=== PATIENT | male | born 1950 | race Hispanic/Latino ===

== ENCOUNTER 2017-12-31 11:55 | Emergency (ER) | payer MEDICARE, OTHER ==
[~2017-12-31] VITALS: Ht 167.6 cm; Wt 108.9 kg
[~2017-12-31 11:55] MED LIST: ALLOPURINOL300 MG PO; AMBIEN10 MG PO; CARAFATE1 GM PO; FLOMAX0.4 MG PO; GABAPENTIN100 MG PO; KEFLEX500 MG PO; LOVENOX30 MG/0.3 SC; METFORMIN HCL500 MG PO; NORCO 7.5-3251 EACH PO; ONGLYZA2.5 MG PO; PANTOPRAZOLE SO40 MG PO; PRED FORTE1 ML OU; PROPRANOLOL HCL10 MG PO; REGLAN10 MG PO; RESTORIL15 MG PO; TOBRADEX EYE O3.5 GM OP; ULTRAM 50MG50 MG PO; VALIUM5 MG PO; ZOLOFT50 MG PO
[2017-12-31] MEDS ORDERED: SODIUM CHLORIDE 0.9% 1000ML 1,000 ML IV SCH (12:15)
[2017-12-31 12:33] LABS: BASOPHILS # (AUTO) 0.1 (0.0-0.1); BASOPHILS % 1.3 % (0.0-1.0); EOSINOPHILS # (AUTO) 0.2 (0.0-0.4); EOSINOPHILS % 3.2 % (0.0-6.0); HEMOGLOBIN 15.8 g/dL (14.0-18.0); LYMPHOCYTES % 31.1 % (18.0-39.1); MEAN CORPUSCULAR HEMOGLOBIN 30.7 pg (28-32); MEAN CORPUSCULAR HGB CONC 35.9 g/dL (31-35); MEAN CORPUSCULAR VOLUME 85.6 fL (81-99); MONOCYTES # (AUTO) 0.5 (0.2-0.8); MONOCYTES % 8.4 % (4.4-11.3); NEUTROPHILS # (AUTO) 3.5 (2.1-6.9); NEUTROPHILS % 55.5 % (38.7-80.0); PLATELET COUNT 193 x10e3/uL (140-360); RED BLOOD COUNT 5.14 x10e6/uL (4.3-5.7); RED CELL DISTRIBUTION WIDTH 12.9 % (11.7-14.4)
[2017-12-31 12:44] LABS: ALBUMIN 3.8 g/dL (3.5-5.0); ALBUMIN/GLOBULIN RATIO 1.2 (0.8-2.0); ANION GAP 13.5 mmol/L (8-16); CALCIUM 9.4 mg/dL (8.4-10.2); CREATININE, SERUM 1.26 mg/dL (0.72-1.25); POTASSIUM 4.5 mmol/L (3.5-5.1)
[2017-12-31 13:14] LABS: BILIRUBIN,URINE NEGATIVE (NEGATIVE); CLARITY,URINE CLEAR (CLEAR); COLOR,URINE YELLOW (YELLOW); KETONES,URINE NEGATIVE (NEGATIVE); LEUKOCYTE ESTERASE ,URINE NEGATIVE (NEGATIVE); NITRITE,URINE NEGATIVE (NEGATIVE); PROTEIN,URINE DIPSTICK NEGATIVE (NEGATIVE); URINE UROBILINOGEN 0.2 mg/dL (0.2 - 1)
[2017-12-31 13:25] LABS: BACTERIA,URINE RARE /HPF; EPITHELIAL CELLS,URINE RARE /LPF; WBC,URINE (MAN) 0-5 /HPF (0-5)
[2017-12-31] MEDS ORDERED: INSULIN REGULAR, HUMAN 100 UNIT/1 ML 3ML VIAL IV ONE (13:30)
== END 2017-12-31 14:40 | disposition home or self-care (01) ==
LOC: ER 11:55
DX: E11.65 Type 2 diabetes mellitus with hyperglycemia (principal); E78.5 Hyperlipidemia, unspecified; E66.9 Obesity, unspecified; Z96.651 Presence of right artificial knee joint
CPT/HCPCS: 36415; 80053; 81001; 82948; 85025; 93005; 99284; J7030

== ENCOUNTER → 2018-07-05 | Outpatient (CLI) | payer MEDICARE ==
[~2018-07-05] MED LIST changes: +GADOBENATE DIMEGLUMINE 1 ML IV ONE
[2018-07-05 08:44] LABS: BLOOD UREA NITROGEN 22 mg/dL (7-26); BUN/CREATININE RATIO 22 (6-25); CREATININE, SERUM 0.99 mg/dL (0.72-1.25); EST GLOMERULAR FILTRATION RATE > 60 ML/MIN (60-)
--- NOTE | 2018-07-05 13:02 | Diagnostic Imaging Report ---
MRI BRAIN WOW HISTORY: Right facial pain, right third nerve palsy, anesthesia COMPARISON: None. TECHNIQUE: Multiplanar, multisequence MRI of the brain (including diffusion-weighted imaging) was performed before and after the administration of intravenous, gadolinium based contrast. Axial 3-D FIESTA and postcontrast 3-D T1 weighted images were obtained from the level of the midbrain to medulla. Motion and noise artifacts obscure some details. DISCUSSION: Scalp/bone marrow: Unremarkable. Brain sulci: Appropriate for patient's age. Ventricles: Normal in size and configuration. No hydrocephalus. Extra-axial spaces: No masses or fluid collections. The cavernous sinuses are grossly normal in size and enhance symmetrically. Meckel's caves are grossly clear. The cisternal trigeminal nerves are unremarkable. The partially visualized cisternal third cranial nerves (on FIESTA images) are also unremarkable. Parenchyma: Mild T2 hyperintensity in the heide is likely chronic microvascular ischemic change. Otherwise, no mass, hemorrhage, or acute vascular insults. No abnormal parenchymal, leptomeningeal, or dural enhancement is seen. Vessels: Normal flow voids in major arteries and veins. Sellar/Suprasellar region: No abnormalities. Craniocervical junction: No abnormalities. Incidental findings: The orbits are grossly unremarkable. There is a small T2 hyperintense retention cyst or polyp in the right maxillary sinus. Mildly T1 hyperintense material in the left maxillary sinus is present; this area is hypointense on T2 and T2/FLAIR images. IMPRESSION: 1. No acute intracranial abnormalities. 2. Unremarkable cavernous sinuses and cisternal trigeminal nerves. The partially visualized cisternal third cranial nerves (on FIESTA images) are also unremarkable. 3. Mild pontine chronic microvascular ischemic change. 4. Nonspecific mild T1 hyperintensity in the left maxillary sinus may be due to inspissated secretions or allergic fungal sinusitis. Signed by: Dr. David Carpio M.D. on 07/05/2018 12:59 PM
== END ==
LOC: MRI 07:46
PROVIDERS: ATTEND Family Medicine
DX: H49.01 Third [oculomotor] nerve palsy, right eye (principal); R47.01 Aphasia; R20.3 Hyperesthesia
CPT/HCPCS: 36415; 70553; 82565; 84520; 93306; 93880; A9577

== ENCOUNTER → 2022-08-09 | Outpatient (CLI) | payer MEDICARE ==
[~2022-08-09] MED LIST changes: -GADOBENATE DIMEGLUMINE 1 ML IV ONE
== END ==
LOC: MRI 13:26
PROVIDERS: ATTEND Family Medicine
DX: M54.2 Cervicalgia (principal); M75.41 Impingement syndrome of right shoulder
CPT/HCPCS: 72141